=== PATIENT | male | born 1965 | race Hispanic/Latino ===

== ENCOUNTER 2020-05-27 09:25 | Emergency (ER) | payer OTHER ==
[~2020-05-27] VITALS: Ht 165.1 cm; Wt 70.0 kg
[2020-05-27 10:49] VITALS: BP 162/77
== END 2020-05-27 11:00 | disposition home or self-care (01) | DRG 125 ==
LOC: ED 09:25
DX: S00.11XA Contusion of right eyelid and periocular area, initial encounter (principal); W55.22XA Struck by cow, initial encounter; Y93.89 Activity, other specified; Y92.79 Other farm location as the place of occurrence of the external cause; Y99.0 Civilian activity done for income or pay

== ENCOUNTER 2024-07-08 10:42 | Emergency (ER) | payer OTHER ==
[2024-07-08] VITALS (10 sets, daily range): BP systolic 134–165; BP diastolic 60–80
[~2024-07-08] VITALS: Ht 165.1 cm; Wt 77.0 kg
[2024-07-08] MEDS ORDERED: LIDOcaine HCl 1% (Local Anesth.) 20 ML VIAL STI STA ×2 (11:14→11:46)
[2024-07-08] MEDS ORDERED: SODIUM CHLORIDE 0.9% FOR IRRIGATION 250 ML BTL IR STA (11:46)
[2024-07-08] MEDS ORDERED: POVIDONE IODINE 0.5 OZ/BTL TOP STA (11:46)
[2024-07-08] MEDS ORDERED: SULFAMETHOXAZOLE W/TRIMETHOPRI 1 COMBO TAB PO STA (11:46)
[2024-07-08 12:16] LABS: BASO% 0.5 % (0-3); EOS% 9.1 % (0-8); HEMATOCRIT 38.3 % (39.0-50.0); HEMOGLOBIN 12.9 g/dl (14.0-18.0); IMMATURE GRANULOCYTES 0.4 % (0.0-5.0); LYMPH% 16.4 % (15-41); MEAN CELL VOLUME 82.7 fL CALC (80.0-100.0); MEAN CORPUSCULAR HGB 27.9 pG CALC (26.0-32.0); MEAN CORPUSCULAR HGB CONC 33.7 g/dL CAL (32.0-36.0); MONO% 7.1 % (2-13); NEUT# 9.99 thou/uL (1.82-7.42); NEUT% 66.5 % (42-76); RED BLOOD COUNT 4.63 mill/uL (4.70-6.10); RED CELL DISTRI WIDTH 14.6 % (11.5-15.5)
[2024-07-08 12:34] LABS: ALBUMIN 3.6 g/dL (3.2-5.0); BILIRUBIN, TOTAL 0.5 mg/dL (0.2-1.3); CREATININE 0.8 mg/dL (0.7-1.3); POTASSIUM 4.3 mmol/l (3.5-5.1); TOTAL PROTEIN 7.1 g/dL (6.3-8.2)
[2024-07-08] MEDS ORDERED: CEPHALEXIN500 MG PO (13:53)
[2024-07-08] MEDS ORDERED: BACTRIM DS1 TAB PO (13:53)
[2024-07-08] MEDS ORDERED: NAPROXEN500 MG PO (13:53)
[2024-07-08] MEDS ORDERED: TRAMADOL HYDROC50 M1 PO (13:57)
[2024-07-11] MEDS ORDERED: CIPROFLOXACN500 MG PO (12:30)
== END 2024-07-08 14:15 | disposition home or self-care (01) | DRG 728 ==
LOC: ED 10:42
PROVIDERS: Family Medicine
PROC: 0V95XZZ Drainage of Scrotum, External Approach (ICD-10-PCS; principal; 2024-07-08)
DX: N49.2 Inflammatory disorders of scrotum (principal)

== ENCOUNTER 2024-07-10 09:35 | Emergency (ER) | payer OTHER ==
[~2024-07-10] VITALS: Ht 165.1 cm; Wt 81.6 kg
[~2024-07-10 09:35] MED LIST: BACTRIM DS1 TAB PO; CEPHALEXIN500 MG PO; NAPROXEN500 MG PO; TRAMADOL HYDROC50 M1 PO
[2024-07-10 09:43] VITALS: BP 140/78
[2024-07-10 09:46] VITALS: BP 129/78
[2024-07-10 09:52] VITALS: BP 129/78
[2024-07-10 10:01] VITALS: BP 130/62
[2024-07-11] MEDS ORDERED: CIPROFLOXACN500 MG PO (12:30)
== END 2024-07-10 10:19 | disposition home or self-care (01) | DRG 951 ==
LOC: ED 09:35
DX: Z48.01 Encounter for change or removal of surgical wound dressing (principal)